=== PATIENT | female | born 1955 | race Caucasian/White ===

== ENCOUNTER → 2016-07-02 | Outpatient (CLI) | payer MEDICARE, OTHER ==
[~2016-07-02] MED LIST: ANUSOL-HC25 MG R; ASPIRIN81 M1 PO; ATORVASTATIN CA20 M1 PO; COREG25 MG PO; CYCLOBENZAPRINE10 MG PO; DICLOFENAC POTA50 MG PO; DIOVAN320 MG PO; FLEXERIL10 MG PO; FLUOXETINE HCL20 M1 PO; GABAPENTIN TAB600 MG PO; GABAPENTIN800 MG PO; HYDR25T PO; KLOR-CON M2020 ME1 PO; LEVAQUIN750 M1 PO; LEVAQUIN750 MG PO; LIPITOR40 MG PO; NORFLEX100 MG PO; NORVASC10 MG PO; OXYGEN NAS; PERCOCET 325 MG1 TA2 PO; PERCOCET 325 MG1 TA4 PO; PLAVIX75 M1 PO; PLAVIX75 MG PO; PREDNISONE10 MG PO; PREDNISONE50 MG PO; PROAIR HFA0.09 MG/AC INH; PROAIR HFA8.5 GM INH; PROVENTIL0.09 MG/A1 INH; PROZAC20 MG PO; PROZAC40 M1 PO; PROZAC40 MG PO; SYNTHROID0.15 MG PO; Synthroid,Lev150 MCG PO; Synthroid,Lev200 MCG PO; VICODIN HP 6601 TAB PO; ZOFRAN4 MG PO
== END | disposition home or self-care (01) ==
LOC: LAB 10:37 → RAD 11:00
DX: M81.0 Age-related osteoporosis without current pathological fracture (principal); E55.9 Vitamin D deficiency, unspecified; M54.9 Dorsalgia, unspecified

== ENCOUNTER 2016-09-06 09:57 | Inpatient (IN) | payer MEDICARE, OTHER ==
[~2016-09-06] VITALS: Ht 152.4 cm; Wt 55.0 kg
--- NOTE | ~2016-09-06 | WRIGHTHP ---
[place], [place] PATIENT HISTORY AND PHYSICAL EXAM NAME: SPARKLE GUZMAN [facility] #: [id number] UNIT #: [id number] ROOM: 528 DOCTOR: OZIEL DÍAZ MD BIRTHDATE: [birth year] DOS: 09/06/2016 HISTORY OF PRESENT ILLNESS: The patient is a 61-year-old female with a past medical history of benign essential hypertension, hypothyroidism, coronary artery disease of the twenty-nine palms vessels, mixed hyperlipidemia, chronic kidney disease stage 3, normocytic anemia, benign essential hypertension, COPD, major depression, recurrent. The patient developed mental confusion and dystonic movements of her upper extremities and head and face with some generalized weakness starting this morning at [facility]. The patient was transferred to the Emergency Department at [facility] where she was suspected to have dystonic reaction to Mirapex, which was stopped. A CT of the head was performed which showed large area of cytotoxic edema involving a good portion of the middle cerebral artery territory infarct accompanied by edema and minimal regional mass effect without any midline shift, no hemorrhage. A call was made to [facility] Stroke Center and case discussed with Dr. Harrison who accepted the patient at [facility] Emergency Department for further evaluation and placement of the patient. The patient is unable to provide any history. The patient's brother is present with her and [id number]. The patient's symptoms started at 6:30 a.m. at the detention. No recent complaints of any chest pains, shortness of breath. No other GI or urinary symptoms. The patient was admitted to [facility] recently after her third surgery to the lumbar spine where she has implants and decompression surgery with infection. The last surgery was for decompression and debridement and the patient was on vancomycin and rifampin. REVIEW OF SYSTEMS: LUNGS: No increasing shortness of breath or wheezing. GASTROINTESTINAL: No nausea, vomiting, diarrhea or constipation. CARDIOVASCULAR: No chest pains or palpitations. FAMILY HISTORY: Noncontributory. HOME MEDICATIONS: Vancomycin, amlodipine, aspirin, atorvastatin, Coreg, vitamin D, clonidine, Plavix, Colace, fluoxetine, gabapentin, levothyroxine, morphine, oxycodone, MiraLax, pramipexole, rifampin, and fentanyl. ALLERGIES: KNOWN ALLERGIES TO FLEXERIL. PHYSICAL EXAMINATION: HEENT: Pupils are equal, round and reactive to light. LUNGS: Clear to auscultation. No wheezing. No rhonchi. CARDIOVASCULAR: Heart rate is regular in rate and rhythm. S1 and S2 normally audible. No significant murmur or any other abnormal cardiac sounds. ABDOMEN: Soft, nontender. No obvious organomegaly. Bowel sounds are present. No obvious herniation. EXTREMITIES: Without significant cyanosis or edema. Warm to touch. CENTRAL NERVOUS SYSTEM: The patient awake, confused with rolling movements of her head and eyes and upper and lower extremities, but moving all extremities. [place], [place] PATIENT HISTORY AND PHYSICAL EXAM NAME: SPARKLE GUZMAN UNIT #: [id number] ROOM: 528 DOCTOR: OZIEL DÍAZ MD BIRTHDATE: [birth year] No seizures. LABORATORY DATA: CT scan results showing large infarct with edema in the left middle cerebral artery area, mostly involving the parietal lobe with minimal regional mass effect and sulcal effacement with no midline shift. Potassium level was low at 4. Normal serum electrolytes otherwise. Albumin low at 2.6. IMPRESSION: 1. The patient with acute ischemic infarct in the region of left middle cerebral artery with some edema and slight local mass effect with severe altered mental status being flown to [facility] Stroke Center. Case discussed with Dr. Harrison from the Stroke Center who preferred that the patient would initially go to [facility] Emergency Department for initial evaluation. The patient's symptoms apparently started at 6:30 a.m. at [facility] this morning. 2. Hypokalemia, being treated with IV infusion of potassium. 3. The patient with infected surgical site for lumbar spine decompression surgery and implants, status post debridement, recently and receiving IV vancomycin and rifampin. 4. Generalized weakness and adult failure to thrive, but the patient was completely alert and oriented yesterday and apparently up to 6:30 a.m. this morning. 5. Moderate protein-calorie malnutrition. 6. Benign essential hypertension. The patient on treatment with clonidine, Norvasc and Coreg. 7. Hypothyroidism. The patient on treatment with thyroid replacement. 8. Coronary artery disease of twenty-nine palms vessels without any angina symptoms. The patient was on Plavix. 9. Mixed hyperlipidemia treated with Lipitor. 10. Chronic kidney disease stage 3. 11. Chronic obstructive pulmonary disease with previous history of nicotine smoke dependence. 12. Major depression, recurrent, moderate, the patient was on treatment. The patient is being transferred to [facility] Emergency Department on instructions of Dr. Harrison from the Stroke Center at [facility]. [place], [place] PATIENT HISTORY AND PHYSICAL EXAM NAME: SPARKLE GUZMAN UNIT #: [id number] ROOM: 528 DOCTOR: OZIEL DÍAZ MD BIRTHDATE: [birth year] OZIEL DÍAZ MD CM:HISPHYS:PATIENT HISTORY AND PHYSICAL EXAMINATION [id number] OZIEL DÍAZ MD 09/06/162043 interface
[2016-09-06 10:03] VITALS: BP 147/73
[2016-09-06] MEDS ORDERED: GLYCOLAX17 GM/DOSE PO (10:14)
[2016-09-06] MEDS ORDERED: VANCOMYCIN HCL N1 GM IV (10:14)
[2016-09-06] MEDS ORDERED: VITAMIN D31000 I1 PO (10:15)
[2016-09-06] MEDS ORDERED: MIRAPEX0.5 MG PO (10:15)
[2016-09-06] MEDS ORDERED: COL-RITE100 M1 PO (10:16)
[2016-09-06] MEDS ORDERED: [UNRECOGNIZED DRUG - OTHER] PO (10:16)
[2016-09-06] MEDS ORDERED: FLUONAZOLE100 MG PO (10:16)
[2016-09-06] MEDS ORDERED: AMLODIPINE BESY10 MG PO (10:17)
[2016-09-06] MEDS ORDERED: DURAGESIC25 MCG/HR TD (10:17)
[2016-09-06] MEDS ORDERED: ASPIRIN CHILDRE81 MG PO (10:17)
[2016-09-06 10:18] LABS: BASO % 0.4 % (0.0-1.0); EOS # 0.1 10*3/uL (0.0-0.4); EOS % 0.8 % (1.0-4.0); HEMATOCRIT 31.1 % (37.0-47.0); HEMOGLOBIN 10.3 g/dl (12.0-16.0); IG # 0.1 10*3/uL (0.0-0.1); LYMPH # 0.8 10*3/uL (1.3-4.4); LYMPH % 8.6 % (27.0-41.0); MEAN CELL VOLUME 82.5 fl (81.0-99.0); MEAN CORPUSCULAR HGB 27.3 pg (27.0-31.0); MEAN CORPUSCULAR HGB CONC 33.1 g/dl (33.0-37.0); MEAN PLATELET VOLUME 8.8 fl (9.6-12.3); MONO # 0.7 10*3/uL (0.1-1.0); MONO % 7.5 % (3.0-9.0); NEUT # 7.8 10*3/uL (2.3-7.9); NEUT % 81.4 % (47.0-73.0); PLATELET COUNT AUTOMATED 264 10*3/uL (130-400); RED BLOOD COUNT 3.77 10*6/uL (4.10-5.10); RED CELL DISTRI WIDTH 14.1 % (0-14.5); WHITE BLOOD COUNT 9.5 10*3/uL (4.8-10.8)
[2016-09-06] MEDS ORDERED: ATORVASTATIN CA20 M1 PO (10:18)
[2016-09-06] MEDS ORDERED: PLAVIX75 M1 PO (10:18)
[2016-09-06] MEDS ORDERED: COREG12.5 M1 PO (10:19)
[2016-09-06] MEDS ORDERED: RIFADIN300 MG PO (10:19)
[2016-09-06] MEDS ORDERED: LEVOTHYROXINE0.15 MG PO (10:20)
[2016-09-06] MEDS ORDERED: MS CONTIN15 MG PO (10:20)
[2016-09-06] MEDS ORDERED: CLONIDINE0.2 MG PO (10:21)
[2016-09-06] MEDS ORDERED: GABAPENTIN800 MG PO (10:21)
[2016-09-06 10:33] LABS: ALBUMIN 2.6 gm/dl (3.1-4.5); ALKALINE PHOSPHATASE 107 U/L (45-117); BILIRUBIN, TOTAL 0.7 mg/dl (0.2-1.0); BUN 14 mg/dl (7-24); CARBON DIOXIDE 26 mmol/L (21-32); CHLORIDE 96 mmol/L (98-107); EST GLOM FILT AFRICAN AMERICAN > 60 ml/min; GLUCOSE 123 mg/dL (65-99); SGOT/AST 17 IU/L (3-35); SGPT/ALT 11 U/L (12-78); SODIUM 135 mmol/L (136-145)
[2016-09-06 13:20] VITALS: BP 149/80
[2016-09-06] MEDS ORDERED: FLUOXETINE HCL60 MG PO (13:44)
[2016-09-06] MEDS ORDERED: ASPIR 8181 MG PO (13:44)
[2016-09-06] MEDS ORDERED: OXYCODONE AND A1 TA3 PO (13:49)
[2016-09-06 16:07] VITALS: BP 115/81
== END 2016-09-06 16:20 | disposition short-term general hospital (02) | DRG 64 ==
LOC: ED 09:57 → EDHOLD 12:16 → 5E 13:12
PROVIDERS: Emergency Medicine
DX: I63.512 Cerebral infarction due to unspecified occlusion or stenosis of left middle cerebral artery (principal); G93.6 Cerebral edema; E44.0 Moderate protein-calorie malnutrition; F33.1 Major depressive disorder, recurrent, moderate; N18.3 Chronic kidney disease, stage 3 (moderate); F41.9 Anxiety disorder, unspecified; I12.9 Hypertensive chronic kidney disease with stage 1 through stage 4 chronic kidney disease, or unspecified chronic kidney disease; I25.10 Atherosclerotic heart disease of native coronary artery without angina pectoris; G89.29 Other chronic pain; J44.9 Chronic obstructive pulmonary disease, unspecified; E78.5 Hyperlipidemia, unspecified; E87.6 Hypokalemia; R62.7 Adult failure to thrive; E89.0 Postprocedural hypothyroidism; Z98.61 Coronary angioplasty status; Z87.440 Personal history of urinary (tract) infections; Z98.51 Tubal ligation status; Z87.891 Personal history of nicotine dependence; Z80.3 Family history of malignant neoplasm of breast; Z80.59 Family history of malignant neoplasm of other urinary tract organ; Z80.8 Family history of malignant neoplasm of other organs or systems; Z87.01 Personal history of pneumonia (recurrent); Z80.1 Family history of malignant neoplasm of trachea, bronchus and lung; Z83.3 Family history of diabetes mellitus; Z82.49 Family history of ischemic heart disease and other diseases of the circulatory system; Z68.23 Body mass index [BMI] 23.0-23.9, adult

== ENCOUNTER 2016-09-15 22:03 | Emergency (ER) | payer MEDICARE, OTHER ==
[~2016-09-15] VITALS: Ht 157.4 cm; Wt 54.9 kg
[~2016-09-15 22:03] MED LIST changes: +AMLODIPINE BESY10 MG PO; +ASPIR 8181 MG PO; +ASPIRIN CHILDRE81 MG PO; +CLONIDINE0.2 MG PO; +COL-RITE100 M1 PO; +COREG12.5 M1 PO; +DURAGESIC25 MCG/HR TD; +FLUONAZOLE100 MG PO; +FLUOXETINE HCL60 MG PO; +GLYCOLAX17 GM/DOSE PO; +LEVOTHYROXINE0.15 MG PO; +MIRAPEX0.5 MG PO; +MS CONTIN15 MG PO; +OXYCODONE AND A1 TA3 PO; +RIFADIN300 MG PO; +VANCOMYCIN HCL N1 GM IV; +VITAMIN D31000 I1 PO; +[UNRECOGNIZED DRUG - OTHER] PO
[2016-09-15 23:00] LABS: BASO % 0.6 % (0.0-1.0); EOS # 0.2 10*3/uL (0.0-0.4); EOS % 3.4 % (1.0-4.0); HEMATOCRIT 27.8 % (37.0-47.0); HEMOGLOBIN 9.7 g/dl (12.0-16.0); IG # 0.1 10*3/uL (0.0-0.1); LYMPH # 1.2 10*3/uL (1.3-4.4); LYMPH % 26.1 % (27.0-41.0); MEAN CELL VOLUME 79.7 fl (81.0-99.0); MEAN CORPUSCULAR HGB 27.8 pg (27.0-31.0); MEAN CORPUSCULAR HGB CONC 34.9 g/dl (33.0-37.0); MEAN PLATELET VOLUME 8.2 fl (9.6-12.3); MONO # 0.7 10*3/uL (0.1-1.0); MONO % 14.5 % (3.0-9.0); NEUT # 2.5 10*3/uL (2.3-7.9); NEUT % 54.3 % (47.0-73.0); PLATELET COUNT AUTOMATED 227 10*3/uL (130-400); RED BLOOD COUNT 3.49 10*6/uL (4.10-5.10); RED CELL DISTRI WIDTH 14.7 % (0-14.5); WHITE BLOOD COUNT 4.7 10*3/uL (4.8-10.8)
[2016-09-15 23:16] LABS: ALBUMIN 2.2 gm/dl (3.1-4.5); ALKALINE PHOSPHATASE 93 U/L (45-117); BILIRUBIN, DIRECT 0.3 mg/dL (0.0-0.2); BILIRUBIN, TOTAL 0.6 mg/dl (0.2-1.0); BUN 9 mg/dl (7-24); CARBON DIOXIDE 23 mmol/L (21-32); CHLORIDE 100 mmol/L (98-107); EST GLOM FILT AFRICAN AMERICAN > 60 ml/min; GLUCOSE 112 mg/dL (65-99); MAGNESIUM 1.5 mg/dL (1.5-2.1); POTASSIUM 2.7 mmol/L (3.5-5.1); SGOT/AST 16 IU/L (3-35); SGPT/ALT 10 U/L (12-78); SODIUM 134 mmol/L (136-145); TOTAL PROTEIN 5.2 gm/dL (6.4-8.2)
[2016-09-15 23:17] LABS: TROPONIN I 0.022 ng/ml (<0.045)
[2016-09-16] MEDS ORDERED: KLOR-CON M2020 ME1 PO (01:14)
[2016-09-17] MEDS ORDERED: GABAPENTIN600 MG PO (23:56)
== END 2016-09-16 03:16 | disposition home or self-care (01) ==
LOC: ED 22:03
PROVIDERS: Emergency Medicine
DX: K62.5 Hemorrhage of anus and rectum (principal); R10.84 Generalized abdominal pain; R11.0 Nausea; E87.6 Hypokalemia; I25.10 Atherosclerotic heart disease of native coronary artery without angina pectoris; I12.9 Hypertensive chronic kidney disease with stage 1 through stage 4 chronic kidney disease, or unspecified chronic kidney disease; N18.3 Chronic kidney disease, stage 3 (moderate); E03.9 Hypothyroidism, unspecified; J44.9 Chronic obstructive pulmonary disease, unspecified; Z88.8 Allergy status to other drugs, medicaments and biological substances; Z79.899 Other long term (current) drug therapy

== ENCOUNTER → 2016-09-16 | Outpatient (CLI) | payer MEDICARE, OTHER ==
[~2016-09-16] MED LIST changes: +ACETAMINOPHEN325 M2 PO; +AMLODIPINE BESY1 TAB PO; +ASPIRIN ADULT L81 M1 PO; +GABAPENTIN600 MG PO; +HYDROXYZINE 25 MG/ML IM; +LISINOPRIL10 M1 PO; +MIRALAX17 GM PO; +MULTI VITAMINS1 TAB PO; +NITROGLYCERIN0.4 MG SL; +OXYCODONE HCL5 MG PO; +PANTOPRAZOLE SO40 MG PO; +PHENAZOPYRIDIN100 M1 PO
--- NOTE | ~2016-09-16 | PROC NOTE ---
[place], [place] PROCEDURE NOTE NAME: SPARKLE GUZMAN [facility] #: [id number] UNIT #: [id number] ROOM: DOCTOR: SELVIN DUVAL BIRTHDATE: [birth year] DOS: 09/16/2016 DOCTOR: Dr. Corona. RADIOLOGIST: Dr. Dumont. BACKGROUND INFORMATION: The patient is a 61-year-old female who is seen for a modified barium swallow. This test was ordered to determine safety with p.o. intake. The patient provided her own case history and reported undergoing back surgery in early August of this year. She stated that she developed an infection in the surgical site as well as a UTI resulting in altered mental status. She underwent test to rule out CVA and this was ruled out. Further medical history includes hypertension, abdominal pain, major depressive disorder, anxiety, GERD and hypothyroid. Due to complications from her back surgery, she ended up n.p.o. Feeding tube has been pulled; however, at the retirement, a diet has not yet been ordered. The patient reported that she did undergo a modified barium swallow during hospitalization in [place]. She stated that she did pass this exam. However, no records of this exam were received by the retirement. She is currently n.p.o. as previously mentioned. For today's assessment, she was alert and able to follow all commands. Respiratory status was within normal limits. Oral peripheral examination revealed presence of natural teeth which were in good condition. Lingual, labial, and buccal skills were within normal limits in terms of strength, range of motion, and coordination. Volitional cough was weak. Volitional swallow was adequate. METHODS AND MATERIALS USED FOR THE EXAM: Due to severe back pain, the patient was unable to tolerate and upright position above 45 degrees, therefore the test was conducted in this position. This test was viewed under fluoroscopy. The patient was presented with a variety of consistencies to assess swallowing skills including applesauce mixed with barium presented in half-teaspoon amounts, barium-coated cookie and barium coated sandwich presented in bite size pieces. She was presented with thin liquids taken by straw. She swallowed liquids in sip size amount. ORAL PHASE: Unremarkable. PHARYNGEAL PHASE: Unremarkable. ESOPHAGEAL PHASE: This phase of the swallow was not formally assessed during this examination. IMPRESSIONS AND RECOMMENDATIONS: Based upon assessment results, this 61-year-old patient presents with swallowing skills that are within normal limits. Despite her inability to sit higher than 45-degree angle, she displayed no oral or pharyngeal difficulty. There was no penetration or aspiration with any consistency given. Recommend regular diet and thin liquids. Recommend the patient implement safety strategies such as sitting upright as high as able during the meals, consuming small bites and sips and eating slowly to ensure safety. The patient would benefit from short-term skilled monitoring during meals to ensure that there are no signs and symptoms of aspiration. Results and [place], [place] PROCEDURE NOTE NAME: SPARKLE GUZMAN UNIT #: [id number] ROOM: DOCTOR: SELVIN DUVAL BIRTHDATE: [birth year] recommendations were shared with the patient and a written copy was provided for education of retirement staff. Thank you very much for this referral. Should you have any questions regarding this patient, please contact the speech pathologist at [phone]. SELVIN DUVAL CM:PROCNOTE:PROCEDURE NOTE [id number] SELVIN DUVAL
--- NOTE | ~2016-09-16 | SLPPN ---
[place], [place] TERMITE HELPER PROGRESS NOTE NAME: SPARKLE GUZMAN UNIT #: [id number] ROOM: DOCTOR: DUNG MURPHY MD,KANWAL Speech Language Pathology Treatment Note Page 1 of 1 Patient Name: SPARKLE GUZMNA Date: 09/16/2016 10:18 AM : 1955 SOC Date: 09/16/2016 [facility]: [facility] Provider #: [id number] Treating Clinician: REYES Souza-TERMITE HELPER Referring Physician: KANWAL MURPHY Onset Date Code Description Primary Diagnosis: 09/16/2016 DYS.PHAGIA DYSPHAGIA Time In: 09:00 AM Time Out: 10:00 AM TERMITE HELPER Interventions and CPT Codes Consisted of: CPT Code Modifiers Minutes Units MOTION FLUOROSCOPY/SWALLOW 69106 60 1 Total Minutes: 60 Total Timed Minutes: 0 Total Untimed Minutes: 60 Total Units: 1 Total Timed Units: 0 Total Untimed Units: 1 09/16/2016 10:19:26 AM KOSTA Souza Date/Time State License #: [id number] CM:YANIV 1022 1022 [facility] [place]
--- NOTE | ~2016-09-16 | SLPIE ---
[place], [place] CATEGORY DEVELOPMENT ANALYST INITIAL EVALUATION NAME: SPARKLE GUZMAN UNIT #: [id number] ROOM: DOCTOR: KANWAL TREVINO FACP, MD Speech Language Pathology Initial Evaluation Page 1 1 of Patient Name: SPARKLE GUZMAN Date: 09/16/2016 10:16 AM : 1955 SOC Date: 09/16/2016 Provider: [facility] Provider #: [id number] Treating Clinician: REYES Souza-CATEGORY DEVELOPMENT ANALYST Referring Physician: KANWAL MURPHY Patient Information Address: [address] [place] [address] Physician: KANWAL MURPHY Physician #: City, [facility], Zip: [place], [place] [address] Occupation: Unknown # of Approved Visits: 0 Gender: Female Soda Worker: FIDEL GUZMAN Medicare #: [id number] Rehabilitation Information / History Onset Date Code Description Primary Diagnosis: 09/16/2016 DYS.PHAGIA DYSPHAGIA Subjective Comments: Initial evaluation created to initiate the electronic medical record. Please see In[facility] for details. Clinical Findings Functional Goals Functional Limitation Reporting Swallowing G8996 - Swallowing functional limitation, current status at therapy episode outset and at reporting intervals Current Status: CH - 0 percent impaired, limited or restricted G8997 - Swallowing functional limitation, projected goal status, at therapy episode outset, at reporting intervals, and at discharge or to end reporting Goal Status: CH - 0 percent impaired, limited or restricted G8998 - Swallowing functional limitation, discharge status, at discharge from therapy or to end reporting Discharge Status: CH - 0 percent impaired, limited or restricted 09/16/2016 10:18:18 AM REYES Souza-CATEGORY DEVELOPMENT ANALYST Date/Time State License #: [id number] CM:ORLIN 1022 1022 [facility] [place]
--- NOTE | ~2016-09-16 | SLPPOC ---
[place], [place] SERGEANT MISSILE CREWMAN PLAN OF CARE NAME: SPARKLE GUZMAN UNIT #: [id number] ROOM: DOCTOR: KANWAL TREVINO FACP, MD Speech Language Pathology Plan of Care Page 1 1 (Initial Evaluation) of Patient Name: SPARKLE GUZMAN Date: 09/16/2016 10:16 AM : 1955 SOC Date: 09/16/2016 Provider: [facility] Provider #: [id number] Treating Clinician: REYES Souza-SERGEANT MISSILE CREWMAN Referring Physician: KANWAL MURPHY Medicare #: [id number] Visits From SOC: 1 Onset Date Description Code Primary Diagnosis: 09/16/2016 DYS.PHAGIA DYSPHAGIA Subjective Comments: Initial evaluation created to initiate the electronic medical record. Please see [facility] for details. Initial Level Goals Functional Limitation Reporting Swallowing G8996 - Swallowing functional limitation, current status at therapy episode outset and at reporting intervals Current Status: CH - 0 percent impaired, limited or restricted G8997 - Swallowing functional limitation, projected goal status, at therapy episode outset, at reporting intervals, and at discharge or to end reporting Goal Status: CH - 0 percent impaired, limited or restricted G8998 - Swallowing functional limitation, discharge status, at discharge from therapy or to end reporting Discharge Status: CH - 0 percent impaired, limited or restricted 09/16/2016 10:18:18 AM KANWAL MURPHY Date/Time REYES Souza-KRISTEN Date I certify the need for these services furnished under this plan of treatment while under my care. State License #: [id number] CM:SLPPOC 1022 1022 [facility] [place]
== END | disposition home or self-care (01) ==
LOC: RAD/SH 09:00
DX: Z51.89 Encounter for other specified aftercare (principal); R13.10 Dysphagia, unspecified

== ENCOUNTER 2016-09-18 21:51 | Inpatient (IN) | payer MEDICARE, OTHER ==
[~2016-09-18] VITALS: Ht 157.4 cm; Wt 55.4 kg
[~2016-09-18 21:51] MED LIST changes: -ACETAMINOPHEN325 M2 PO; -AMLODIPINE BESY1 TAB PO; -ASPIRIN ADULT L81 M1 PO; -HYDROXYZINE 25 MG/ML IM; -LISINOPRIL10 M1 PO; -MIRALAX17 GM PO; -MULTI VITAMINS1 TAB PO; -NITROGLYCERIN0.4 MG SL; -OXYCODONE HCL5 MG PO; -PANTOPRAZOLE SO40 MG PO; -PHENAZOPYRIDIN100 M1 PO
[2016-09-18 21:58] VITALS: BP 94/60
[2016-09-18 22:14] LABS: BASO % 0.5 % (0.0-1.0); EOS # 0.2 10*3/uL (0.0-0.4); EOS % 2.7 % (1.0-4.0); HEMATOCRIT 31.5 % (37.0-47.0); HEMOGLOBIN 10.5 g/dl (12.0-16.0); IG # 0.1 10*3/uL (0.0-0.1); LYMPH # 1.9 10*3/uL (1.3-4.4); LYMPH % 23.6 % (27.0-41.0); MEAN CELL VOLUME 81.8 fl (81.0-99.0); MEAN CORPUSCULAR HGB 27.3 pg (27.0-31.0); MEAN CORPUSCULAR HGB CONC 33.3 g/dl (33.0-37.0); MEAN PLATELET VOLUME 8.3 fl (9.6-12.3); MONO # 0.8 10*3/uL (0.1-1.0); NEUT # 4.9 10*3/uL (2.3-7.9); NEUT % 61.7 % (47.0-73.0); PLATELET COUNT AUTOMATED 277 10*3/uL (130-400); RED BLOOD COUNT 3.85 10*6/uL (4.10-5.10); RED CELL DISTRI WIDTH 15.1 % (0-14.5); WHITE BLOOD COUNT 7.9 10*3/uL (4.8-10.8)
[2016-09-18 22:30] LABS: ALBUMIN 2.4 gm/dl (3.1-4.5); BILIRUBIN, TOTAL 0.6 mg/dl (0.2-1.0); POTASSIUM 2.7 mmol/L (3.5-5.1); TOTAL PROTEIN 5.3 gm/dL (6.4-8.2)
[2016-09-18 22:57] LABS: BILIRUBIN 2+ (NEGATIVE); BLOOD NEGATIVE (NEGATIVE); CLARITY SL CLOUDY (CLEAR); COLOR ORANGE (YELLOW); GLUCOSE TRACE (NEGATIVE); KETONE 1+ (NEGATIVE); LEUKO ESTERASE NEGATIVE (NEGATIVE); NITRITE POSITIVE (NEGATIVE); PROTEIN 3+ (NEGATIVE)
[2016-09-18 23:03] LABS: HYALINE CAST 16-20
[2016-09-18 23:04] LABS: BACTERIA 2+; URINE REFLEX COMMENT YES (NO)
[2016-09-18 23:05] LABS: RBC 0-2 rbc/hpf (0-2)
[2016-09-18 23:13] LABS: INTERNATIONAL NORM RATIO 1.1 (2.0-3.5)
[2016-09-18 23:23] VITALS: BP 116/75
[2016-09-18] MEDS ORDERED: PLAVIX75 M1 PO (23:52)
[2016-09-18] MEDS ORDERED: COREG25 MG PO (23:52)
[2016-09-18] MEDS ORDERED: ASPIRIN ADULT L81 M1 PO (23:52)
[2016-09-18] MEDS ORDERED: SYNTHROID0.15 MG PO (23:53)
[2016-09-18] MEDS ORDERED: MULTI VITAMINS1 TAB PO (23:54)
[2016-09-18] MEDS ORDERED: ACETAMINOPHEN325 M2 PO (23:57)
[2016-09-19] MEDS ORDERED: LISINOPRIL10 M1 PO
[2016-09-19] MEDS ORDERED: HYDROXYZINE 25 MG/ML IM
[2016-09-19] MEDS ORDERED: MIRALAX17 GM PO (00:01)
[2016-09-19] MEDS ORDERED: AMLODIPINE BESY1 TAB PO (00:03)
[2016-09-19] MEDS ORDERED: NITROGLYCERIN0.4 MG SL (00:03)
[2016-09-19] MEDS ORDERED: PANTOPRAZOLE SO40 MG PO (00:05)
[2016-09-19] MEDS ORDERED: OXYCODONE HCL5 MG PO (00:05)
[2016-09-19] MEDS ORDERED: PHENAZOPYRIDIN100 M1 PO (00:07)
[2016-09-19] MEDS ORDERED: PROZAC20 MG PO (00:08)
[2016-09-19 00:12] LABS: LA>2 REFLEX 2 HR DRAW NOW
[2016-09-19 00:30] VITALS: BP 86/48
[2016-09-19 00:36] LABS: CKMB 1.1 ng/ml (0.5-3.6); TROPONIN I 0.031 ng/ml (<0.045)
[2016-09-19 01:00] VITALS: BP 100/52; BP 100/58
[2016-09-19 02:25] VITALS: BP 122/76
[2016-09-19 06:29] LABS: BASO # 0.1 10*3/uL (0.0-0.1); BASO % 0.8 % (0.0-1.0); EOS # 0.2 10*3/uL (0.0-0.4); EOS % 2.7 % (1.0-4.0); HEMATOCRIT 28.4 % (37.0-47.0); HEMOGLOBIN 9.3 g/dl (12.0-16.0); IG # 0.1 10*3/uL (0.0-0.1); LYMPH # 1.5 10*3/uL (1.3-4.4); LYMPH % 23.2 % (27.0-41.0); MEAN CORPUSCULAR HGB 27.2 pg (27.0-31.0); MEAN CORPUSCULAR HGB CONC 32.7 g/dl (33.0-37.0); MEAN PLATELET VOLUME 8.7 fl (9.6-12.3); MONO # 0.7 10*3/uL (0.1-1.0); MONO % 11.2 % (3.0-9.0); NEUT # 3.8 10*3/uL (2.3-7.9); NEUT % 60.2 % (47.0-73.0); PLATELET COUNT AUTOMATED 239 10*3/uL (130-400); RED BLOOD COUNT 3.42 10*6/uL (4.10-5.10); RED CELL DISTRI WIDTH 15.3 % (0-14.5); WHITE BLOOD COUNT 6.3 10*3/uL (4.8-10.8)
[2016-09-19 06:40] LABS: CKMB 2.6 ng/ml (0.5-3.6); TROPONIN I 0.026 ng/ml (<0.045)
[2016-09-19 06:54] LABS: INTERNATIONAL NORM RATIO 1.1 (2.0-3.5)
[2016-09-19 06:57] LABS: ALBUMIN 2.3 gm/dl (3.1-4.5); BILIRUBIN, TOTAL 0.3 mg/dl (0.2-1.0); FREE T4 0.79 ng/dl (0.76-1.46); MAGNESIUM 1.3 mg/dL (1.5-2.1); PHOSPHOROUS 2.6 mg/dL (2.5-4.9); POTASSIUM 3.6 mmol/L (3.5-5.1); TOTAL PROTEIN 5.1 gm/dL (6.4-8.2)
[2016-09-19 07:03] LABS: THYROID STIM HORMONE (HS) 47.4 uIU/ml (0.358-4.75)
[2016-09-19 07:18] LABS: FOLIC ACID 5.34 ng/mL (>5.38); VITAMIN D, 25-HYDROXY 7.7 ng/mL (30-100)
[2016-09-19 08:00] VITALS: BP 113/69
[2016-09-19 12:00] VITALS: BP 131/73
[2016-09-19 12:34] LABS: TROPONIN I 0.026 ng/ml (<0.045)
[2016-09-19 12:36] LABS: CKMB 4.3 ng/ml (0.5-3.6)
== END 2016-09-19 13:22 | disposition short-term general hospital (02) | DRG 539 ==
LOC: ED 21:51 → 4E 23:18 → EDHOLD 23:18 → 4E 23:27
PROVIDERS: Emergency Medicine; Hospitalist
DX: M46.26 Osteomyelitis of vertebra, lumbar region (principal); N17.0 Acute kidney failure with tubular necrosis; E43 Unspecified severe protein-calorie malnutrition; F33.9 Major depressive disorder, recurrent, unspecified; N39.0 Urinary tract infection, site not specified; K80.20 Calculus of gallbladder without cholecystitis without obstruction; N20.0 Calculus of kidney; Z87.01 Personal history of pneumonia (recurrent); I25.10 Atherosclerotic heart disease of native coronary artery without angina pectoris; G89.29 Other chronic pain; F41.9 Anxiety disorder, unspecified; E03.9 Hypothyroidism, unspecified; E87.6 Hypokalemia; E86.0 Dehydration; E78.5 Hyperlipidemia, unspecified; M54.5 Low back pain; D64.9 Anemia, unspecified; J43.9 Emphysema, unspecified; I70.0 Atherosclerosis of aorta; E53.8 Deficiency of other specified B group vitamins; E55.9 Vitamin D deficiency, unspecified; I10 Essential (primary) hypertension; Z98.51 Tubal ligation status; Z95.818 Presence of other cardiac implants and grafts; Z90.49 Acquired absence of other specified parts of digestive tract; Z72.89 Other problems related to lifestyle; Z72.0 Tobacco use; Z82.49 Family history of ischemic heart disease and other diseases of the circulatory system; Z80.3 Family history of malignant neoplasm of breast; Z80.8 Family history of malignant neoplasm of other organs or systems; Z80.1 Family history of malignant neoplasm of trachea, bronchus and lung; Z83.3 Family history of diabetes mellitus; Z88.8 Allergy status to other drugs, medicaments and biological substances; Z79.82 Long term (current) use of aspirin; Z79.899 Other long term (current) drug therapy; Z68.22 Body mass index [BMI] 22.0-22.9, adult

== ENCOUNTER 2016-10-04 18:18 | Emergency (ER) | payer MEDICARE, OTHER ==
[~2016-10-04] VITALS: Wt 51.7 kg
[~2016-10-04 18:18] MED LIST changes: +ACETAMINOPHEN325 M2 PO; +AMLODIPINE BESY1 TAB PO; +ASPIRIN ADULT L81 M1 PO; +HYDROXYZINE 25 MG/ML IM; +LISINOPRIL10 M1 PO; +MIRALAX17 GM PO; +MULTI VITAMINS1 TAB PO; +NITROGLYCERIN0.4 MG SL; +OXYCODONE HCL5 MG PO; +PANTOPRAZOLE SO40 MG PO; +PHENAZOPYRIDIN100 M1 PO
[2016-10-04] MEDS ORDERED: CLONIDINE HCL0.1 MG PO (18:56)
== END 2016-10-04 19:21 | disposition home or self-care (01) ==
LOC: ED 18:18
DX: R51 Headache (principal); I10 Essential (primary) hypertension; I25.10 Atherosclerotic heart disease of native coronary artery without angina pectoris; J44.9 Chronic obstructive pulmonary disease, unspecified; E78.5 Hyperlipidemia, unspecified; E03.9 Hypothyroidism, unspecified; Z87.891 Personal history of nicotine dependence; Z79.82 Long term (current) use of aspirin; Z79.899 Other long term (current) drug therapy; Z88.8 Allergy status to other drugs, medicaments and biological substances

== ENCOUNTER → 2016-11-04 | Outpatient (CLI) | payer MEDICARE, OTHER ==
[~2016-11-04] MED LIST changes: +CLONIDINE HCL0.1 MG PO
[2016-11-04 13:09] LABS: BASO % 0.9 % (0.0-1.0); EOS # 0.2 10*3/uL (0.0-0.4); EOS % 6.2 % (1.0-4.0); HEMATOCRIT 29.5 % (37.0-47.0); HEMOGLOBIN 9.6 g/dl (12.0-16.0); LYMPH # 1.4 10*3/uL (1.3-4.4); LYMPH % 41.1 % (27.0-41.0); MEAN CORPUSCULAR HGB 27.4 pg (27.0-31.0); MEAN CORPUSCULAR HGB CONC 32.5 g/dl (33.0-37.0); MEAN PLATELET VOLUME 8.9 fl (9.6-12.3); MONO # 0.3 10*3/uL (0.1-1.0); NEUT # 1.5 10*3/uL (2.3-7.9); NEUT % 43.5 % (47.0-73.0); PLATELET COUNT AUTOMATED 209 10*3/uL (130-400); RED BLOOD COUNT 3.51 10*6/uL (4.10-5.10); RED CELL DISTRI WIDTH 14.5 % (0-14.5); WHITE BLOOD COUNT 3.4 10*3/uL (4.8-10.8)
[2016-11-04 13:38] LABS: ALKALINE PHOSPHATASE 88 U/L (45-117); BILIRUBIN, TOTAL 0.3 mg/dl (0.2-1.0); BUN 15 mg/dl (7-24); CARBON DIOXIDE 24 mmol/L (21-32); CHLORIDE 110 mmol/L (98-107); CHOLESTEROL 117 mg/dL (<200); CPK 25 U/L (26-192); EST GLOM FILT AFRICAN AMERICAN > 60 ml/min; FREE T4 1.98 ng/dl (0.76-1.46); GLUCOSE 104 mg/dL (65-99); HDL CHOLESTEROL 36 mg/dl (40-60); LDL CHOLESTEROL 32 mg/dL (9-159); POTASSIUM 3.8 mmol/L (3.5-5.1); SGOT/AST 19 IU/L (3-35); SGPT/ALT 24 U/L (12-78); SODIUM 142 mmol/L (136-145); TOTAL PROTEIN 5.6 gm/dL (6.4-8.2); TRIGLYCERIDES 243 mg/dl (<150); VLDL CHOLESTEROL 49 mg/dL (6-40)
[2016-11-04 13:46] LABS: C-REACTIVE PROTEIN < 0.29 MG/DL (0-0.3); THYROID STIM HORMONE (HS) 0.066 uIU/ml (0.358-4.75)
[2016-11-04 15:57] LABS: VITAMIN D, 25-HYDROXY 59.6 ng/mL (30-100)
== END | disposition home or self-care (01) ==
LOC: LAB 12:22
PROVIDERS: Internal Medicine Infectious Disease
DX: E11.9 Type 2 diabetes mellitus without complications (principal); E78.00 Pure hypercholesterolemia, unspecified; E55.9 Vitamin D deficiency, unspecified; M46.20 Osteomyelitis of vertebra, site unspecified; R53.83 Other fatigue; E03.9 Hypothyroidism, unspecified

== ENCOUNTER → 2016-12-05 | Outpatient (CLI) | payer MEDICARE, OTHER ==
[2016-12-05 14:15] LABS: HEMATOCRIT 31.8 % (37.0-47.0); HEMOGLOBIN 10.4 g/dl (12.0-16.0); MEAN CORPUSCULAR HGB 27.8 pg (27.0-31.0); MEAN CORPUSCULAR HGB CONC 32.7 g/dl (33.0-37.0); MEAN PLATELET VOLUME 9.5 fl (9.6-12.3); PLATELET COUNT AUTOMATED 207 10*3/uL (130-400); RED BLOOD COUNT 3.74 10*6/uL (4.10-5.10); RED CELL DISTRI WIDTH 13.1 % (0-14.5); WHITE BLOOD COUNT 6.5 10*3/uL (4.8-10.8)
[2016-12-05 14:42] LABS: ALBUMIN 3.1 gm/dl (3.1-4.5); ALKALINE PHOSPHATASE 114 U/L (45-117); BUN 21 mg/dl (7-24); CHLORIDE 107 mmol/L (98-107); CREATININE 1.24 mg/dL (0.55-1.02); POTASSIUM 3.5 mmol/L (3.5-5.1); SGOT/AST 17 IU/L (3-35); SGPT/ALT 17 U/L (12-78); SODIUM 141 mmol/L (136-145); TOTAL PROTEIN 5.8 gm/dL (6.4-8.2)
[2016-12-05 14:44] LABS: BASOPHILS 1 % (0-1); PLATELET SUFFICIENCY NORMAL (NORMAL); POLYCHROMASIA SLIGHT; TOTAL CELLS COUNTED 100 #CELLS
== END | disposition home or self-care (01) ==
LOC: LAB 13:54
PROVIDERS: Internal Medicine Infectious Disease
DX: M46.20 Osteomyelitis of vertebra, site unspecified (principal)

== ENCOUNTER → 2017-03-11 | Outpatient (CLI) | payer MEDICARE, OTHER ==
[2017-03-11 12:52] LABS: HEMATOCRIT 38.7 % (37.0-47.0); HEMOGLOBIN 12.2 g/dl (12.0-16.0); MEAN CELL VOLUME 78.8 fl (81.0-99.0); MEAN CORPUSCULAR HGB 24.8 pg (27.0-31.0); MEAN CORPUSCULAR HGB CONC 31.5 g/dl (33.0-37.0); RED BLOOD COUNT 4.91 10*6/uL (4.10-5.10); RED CELL DISTRI WIDTH 15.4 % (0-14.5); WHITE BLOOD COUNT 5.4 10*3/uL (4.8-10.8)
[2017-03-11 13:20] LABS: ALBUMIN 3.9 gm/dl (3.1-4.5); CREATININE 1.47 mg/dL (0.55-1.02); FREE T4 0.99 ng/dl (0.76-1.46); POTASSIUM 4.6 mmol/L (3.5-5.1); TOTAL PROTEIN 6.9 gm/dL (6.4-8.2)
[2017-03-11 13:24] LABS: THYROID STIM HORMONE (HS) 26.4 uIU/ml (0.358-4.75)
== END | disposition home or self-care (01) ==
LOC: LAB 12:11
PROVIDERS: Family Medicine
DX: I12.9 Hypertensive chronic kidney disease with stage 1 through stage 4 chronic kidney disease, or unspecified chronic kidney disease (principal); N18.3 Chronic kidney disease, stage 3 (moderate); D63.1 Anemia in chronic kidney disease; E78.00 Pure hypercholesterolemia, unspecified; E55.9 Vitamin D deficiency, unspecified; G62.9 Polyneuropathy, unspecified; M54.9 Dorsalgia, unspecified

== ENCOUNTER → 2017-06-04 | Outpatient (CLI) | payer MEDICARE, OTHER ==
[2017-06-04 13:33] LABS: HEMATOCRIT 37.5 % (37.0-47.0); MEAN CELL VOLUME 78.9 fl (81.0-99.0); MEAN CORPUSCULAR HGB 25.3 pg (27.0-31.0); RED BLOOD COUNT 4.75 10*6/uL (4.10-5.10); RED CELL DISTRI WIDTH 15.2 % (0-14.5); WHITE BLOOD COUNT 5.2 10*3/uL (4.8-10.8)
[2017-06-04 14:01] LABS: CREATININE 1.49 mg/dL (0.55-1.02); FREE T4 1.46 ng/dl (0.76-1.46); POTASSIUM 5.1 mmol/L (3.5-5.1)
[2017-06-04 14:08] LABS: THYROID STIM HORMONE (HS) 0.318 uIU/ml (0.358-4.75)
== END | disposition home or self-care (01) ==
LOC: LAB 13:10
PROVIDERS: Family Medicine
DX: F41.1 Generalized anxiety disorder (principal); E74.09 Other glycogen storage disease; I10 Essential (primary) hypertension; E03.9 Hypothyroidism, unspecified; E55.9 Vitamin D deficiency, unspecified

== ENCOUNTER → 2017-12-10 | Outpatient (CLI) | payer MEDICARE, OTHER ==
[2017-12-10 10:31] LABS: HEMATOCRIT 38.3 % (37.0-47.0); HEMOGLOBIN 12.3 g/dl (12.0-16.0); MEAN CELL VOLUME 82.5 fl (81.0-99.0); MEAN CORPUSCULAR HGB 26.5 pg (27.0-31.0); MEAN CORPUSCULAR HGB CONC 32.1 g/dl (33.0-37.0); MEAN PLATELET VOLUME 9.7 fl (9.6-12.3); RED BLOOD COUNT 4.64 10*6/uL (4.10-5.10); RED CELL DISTRI WIDTH 15.3 % (0-14.5); WHITE BLOOD COUNT 4.4 10*3/uL (4.8-10.8)
[2017-12-10 10:36] LABS: ALBUMIN 3.7 gm/dl (3.1-4.5); CREATININE 1.39 mg/dL (0.55-1.02); POTASSIUM 4.7 mmol/L (3.5-5.1)
[2017-12-10 10:43] LABS: FREE T4 1.69 ng/dl (0.76-1.46); THYROID STIM HORMONE (HS) 0.239 uIU/ml (0.358-4.75); TOTAL PROTEIN 6.5 gm/dL (6.4-8.2)
== END | disposition home or self-care (01) ==
LOC: LAB 09:37
PROVIDERS: Family Medicine
DX: I25.10 Atherosclerotic heart disease of native coronary artery without angina pectoris (principal); I10 Essential (primary) hypertension; E03.9 Hypothyroidism, unspecified; R53.83 Other fatigue; E78.00 Pure hypercholesterolemia, unspecified; E11.9 Type 2 diabetes mellitus without complications

== ENCOUNTER → 2018-02-11 | Outpatient (CLI) | payer MEDICARE, OTHER ==
[2018-02-11 12:51] LABS: ALBUMIN 3.8 gm/dl (3.1-4.5); PHOSPHOROUS 3.4 mg/dL (2.5-4.9)
[2018-02-11 12:59] LABS: THYROID STIM HORMONE (HS) 0.092 uIU/ml (0.358-4.75)
[2018-02-11 13:12] LABS: VITAMIN D, 25-HYDROXY 52.6 ng/mL (30-100)
== END | disposition home or self-care (01) ==
LOC: LAB 11:33
PROVIDERS: Internal Medicine Cardiovascular Disease
DX: M80.00XG Age-related osteoporosis with current pathological fracture, unspecified site, subsequent encounter for fracture with delayed healing (principal); I25.10 Atherosclerotic heart disease of native coronary artery without angina pectoris; E78.2 Mixed hyperlipidemia

== ENCOUNTER → 2018-03-19 | Outpatient (CLI) | payer MEDICARE, OTHER ==
[2018-03-19 15:51] LABS: URINE AMPHETAMINES < 1000 (1000ng/ml); URINE BARBITURATES < 200 (200ng/ml); URINE BENZODIAZEPINES < 200 (200ng/ml); URINE CANNABINOIDS (THC) < 50 (50ng/ml); URINE COCAINE < 300 (300ng/ml); URINE METHADONE < 300 (300ng/ml); URINE OPIATES < 300 (300ng/ml)
[2018-03-19 15:53] LABS: URINE PHENCYCLIDINE < 25 (25ng/ml)
== END | disposition home or self-care (01) ==
LOC: LAB 15:15
PROVIDERS: Family Medicine
DX: Z79.899 Other long term (current) drug therapy (principal)

== ENCOUNTER → 2018-05-20 | Outpatient (CLI) | payer MEDICARE, OTHER ==
[2018-05-20 14:16] LABS: CREATININE 1.27 mg/dL (0.55-1.02); POTASSIUM 4.7 mmol/L (3.5-5.1)
[2018-05-20 14:18] LABS: FREE T4 1.67 ng/dl (0.76-1.46)
[2018-05-20 14:32] LABS: THYROID STIM HORMONE (HS) 5.07 uIU/ml (0.358-4.75)
== END | disposition home or self-care (01) ==
LOC: LAB 13:19
PROVIDERS: Family Medicine
DX: E78.00 Pure hypercholesterolemia, unspecified (principal); E55.9 Vitamin D deficiency, unspecified; I10 Essential (primary) hypertension; E03.9 Hypothyroidism, unspecified

== ENCOUNTER → 2018-08-21 | Outpatient (CLI) | payer MEDICARE, OTHER ==
[2018-08-21 14:45] LABS: FREE T4 1.85 ng/dl (0.76-1.46)
[2018-08-21 14:48] LABS: ALBUMIN 3.6 gm/dl (3.1-4.5); CREATININE 1.28 mg/dL (0.55-1.02); POTASSIUM 4.4 mmol/L (3.5-5.1); TOTAL PROTEIN 6.2 gm/dL (6.4-8.2)
[2018-08-21 14:54] LABS: PTH INTACT 350.1 pg/mL (18.5-88.0); VITAMIN D, 25-HYDROXY 61.3 ng/mL (30-100)
[2018-08-21 14:56] LABS: THYROID STIM HORMONE (HS) 0.096 uIU/ml (0.358-4.75)
== END | disposition home or self-care (01) ==
LOC: LAB 13:37
PROVIDERS: Family Medicine; Internal Medicine Endocrinology, Diabetes & Metabolism
DX: M80.00XG Age-related osteoporosis with current pathological fracture, unspecified site, subsequent encounter for fracture with delayed healing (principal); E78.00 Pure hypercholesterolemia, unspecified; E55.9 Vitamin D deficiency, unspecified; M54.9 Dorsalgia, unspecified; R73.09 Other abnormal glucose

== ENCOUNTER → 2018-09-02 | Outpatient (CLI) | payer MEDICARE, OTHER | END | disposition home or self-care (01) | LOC: RAD 13:00 | DX: M81.0 Age-related osteoporosis without current pathological fracture (principal); N95.9 Unspecified menopausal and perimenopausal disorder ==

== ENCOUNTER → 2018-11-22 | Outpatient (CLI) | payer MEDICARE, OTHER ==
[2018-11-23 15:06] LABS: t-TRANSGLUTAMINASE (tTG) IGA <2 U/mL (0-3); t-TRANSGLUTAMINASE (tTG) IgG <2 U/mL (0-5)
[2018-11-23 18:06] LABS: ENDOMYSIAL ANTIBODY IgA Negative (Negative)
== END | disposition home or self-care (01) ==
LOC: LAB 12:03
PROVIDERS: Internal Medicine Endocrinology, Diabetes & Metabolism
DX: E03.8 Other specified hypothyroidism (principal); E06.3 Autoimmune thyroiditis; M81.0 Age-related osteoporosis without current pathological fracture; E21.3 Hyperparathyroidism, unspecified

== ENCOUNTER → 2019-02-28 | Outpatient (CLI) | payer MEDICARE, OTHER ==
[2019-02-28 11:42] LABS: HEMATOCRIT 40.9 % (37.0-47.0); HEMOGLOBIN 13.3 g/dl (12.0-16.0); MEAN CELL VOLUME 83.3 fl (81.0-99.0); MEAN CORPUSCULAR HGB 27.1 pg (27.0-31.0); MEAN CORPUSCULAR HGB CONC 32.5 g/dl (33.0-37.0); MEAN PLATELET VOLUME 9.5 fl (9.6-12.3); RED BLOOD COUNT 4.91 10*6/uL (4.10-5.10); RED CELL DISTRI WIDTH 13.9 % (0-14.5)
[2019-02-28 12:14] LABS: ALBUMIN 3.7 gm/dl (3.1-4.5); CREATININE 1.39 mg/dL (0.55-1.02); FREE T4 1.64 ng/dl (0.76-1.46); POTASSIUM 3.4 mmol/L (3.5-5.1); TOTAL PROTEIN 7.1 gm/dL (6.4-8.2)
[2019-02-28 12:18] LABS: THYROID STIM HORMONE (HS) 1.53 uIU/ml (0.358-4.75)
== END | disposition home or self-care (01) ==
LOC: LAB 11:13
PROVIDERS: Family Medicine
DX: I25.10 Atherosclerotic heart disease of native coronary artery without angina pectoris (principal); I10 Essential (primary) hypertension; K21.9 Gastro-esophageal reflux disease without esophagitis; K44.9 Diaphragmatic hernia without obstruction or gangrene; E03.9 Hypothyroidism, unspecified

== ENCOUNTER 2019-07-31 13:42 | Inpatient (IN) | payer MEDICARE, OTHER ==
[~2019-07-31] VITALS: Ht 160 cm; Wt 64.0 kg
[2019-07-31 13:48] VITALS: BP 148/92
[2019-07-31 14:19] LABS: BASO # 0.1 10*3/uL (0.0-0.1); BASO % 0.3 % (0.0-1.0); EOS # 0.1 10*3/uL (0.0-0.4); EOS % 0.3 % (1.0-4.0); HEMATOCRIT 43.3 % (37.0-47.0); LYMPH # 1.2 10*3/uL (1.3-4.4); LYMPH % 6.5 % (27.0-41.0); MEAN CELL VOLUME 82.6 fl (81.0-99.0); MEAN CORPUSCULAR HGB 27.5 pg (27.0-31.0); MEAN CORPUSCULAR HGB CONC 33.3 g/dl (33.0-37.0); MEAN PLATELET VOLUME 8.8 fl (9.6-12.3); MONO # 1.1 10*3/uL (0.1-1.0); MONO % 6.3 % (3.0-9.0); NEUT # 15.2 10*3/uL (2.3-7.9); NEUT % 85.8 % (47.0-73.0); PLATELET COUNT AUTOMATED 251 10*3/uL (130-400); RED BLOOD COUNT 5.24 10*6/uL (4.10-5.10); RED CELL DISTRI WIDTH 12.8 % (0-14.5); WHITE BLOOD COUNT 17.7 10*3/uL (4.8-10.8)
[2019-07-31 14:31] LABS: ACT PARTIAL THROMBO TIME 25.6 SECONDS (20.0-32.1)
[2019-07-31 14:36] LABS: ALBUMIN 3.4 gm/dl (3.1-4.5); ALKALINE PHOSPHATASE 103 U/L (45-117); BUN 17 mg/dl (7-24); CHLORIDE 103 mmol/L (98-107); CREATININE 1.36 mg/dL (0.55-1.02); SGOT/AST 61 IU/L (3-35); SGPT/ALT 36 U/L (12-78); SODIUM 134 mmol/L (136-145); TOTAL PROTEIN 6.7 gm/dL (6.4-8.2)
[2019-07-31 14:40] LABS: TROPONIN I < 0.015 ng/ml (<0.045)
[2019-07-31 17:03] VITALS: BP 124/74
[2019-07-31 17:45] VITALS: BP 130/67
--- NOTE | 2019-07-31 17:45 | NUR ---
A 64, admitted to , under the services of Dr. ARJUN DURHAM,OZIEL Cerrato with a diagnosis of CHEST PAIN. Chief complaint is CHEST PAIN/SHOULDER PAIN. Patient arrived via stretcher from ER. Monitor applied. Initial assessment completed. Vital signs taken and recorded. DR. ARJUN DURHAM,OZIEL Cerrato notified of admission to the unit. Orders received. See assessment for past medical history, medications and allergies. Patient and/or family oriented to unit. [facility] visitation policy reviewed. Clothing/patient valuable form completed. ACOSTA CHERY
--- NOTE | 2019-07-31 17:46 | NUR ---
PATIENT DENIED ANY WOUNDS A&OX4.
[2019-07-31] MEDS ORDERED: LEVOXYL88 MCG PO (17:55)
[2019-07-31] MEDS ORDERED: CELECOXIB200 M1 PO (18:17)
[2019-07-31] MEDS ORDERED: GABAPENTIN800 MG PO (18:17)
[2019-07-31] MEDS ORDERED: FOSAMAX70 M1 PO (18:18)
[2019-07-31] MEDS ORDERED: AMBIEN10 M1 PO (18:19)
[2019-07-31] MEDS ORDERED: PROAIR HFA8.5 GM INH (18:19)
[2019-07-31] MEDS ORDERED: LIPITOR20 MG PO (18:19)
[2019-07-31] MEDS ORDERED: CYMBALTA20 M1 PO (18:20)
[2019-07-31] MEDS ORDERED: VITAMIN D PO (18:23)
--- NOTE | 2019-07-31 19:40 | NUR ---
PATIENT RESTING IN BED C/O BACK PAIN. TYLENOL OFFERED. PATIENT STATES "THAT WON'T CUT IT. I TAKE MEDICAL MARIJUANA THREE TIMES A DAY, I NEED SOMETHING GOOD AND STRONG". INFORMED ABOUT ORDERED STRESS TEST. VERBALIZED UNDERSTANDING. BED IN LOWEST POSITION, CALL LIGHT IN REACH
[2019-07-31 20:00] VITALS: BP 126/74
--- NOTE | 2019-07-31 20:05 | NUR ---
DR DÍAZ AWARE OF PATIENT REQUESTING STRONGER PAIN MEDICATION. ORDER TAKEN FOR 1MG DILAUDID IV Q4H PRN.
--- NOTE | 2019-07-31 20:59 | NUR ---
MEDICATED WITH PRN DILAUDID FOR C/O SHOULDER PAIN RATED 8/10 ON A 0/10 PAIN SCALE
[2019-08-01] VITALS: BP 135/81
--- NOTE | 2019-08-01 01:59 | NUR ---
24 HR chart check completed.
--- NOTE | 2019-08-01 04:40 | NUR ---
MEDICATED WITH PRN DILAUDID FOR C/O SHOULDER PAIN RATED 8/10 ON A 0/10 PAIN SCALE. WILL MONITOR
[2019-08-01 08:00] VITALS: BP 119/84
--- NOTE | 2019-08-01 09:19 | NUR ---
It Operations Specialist spoke to patient via phone. Patient states lives at home with her . There are 0 steps in the home. Physician: Dr. Yuri Medina Pharmacy: [facility] Home health services: none Patient's level of ADLs: INDEPENDENT Patient has working utilities: yes DME: none Follow-up physician's appointment after d/c: she prefers to make her own follow up appt after discharge Does patient want to access PORTAL?: no Discharge plan discussed with patient. She lives at home with her . She is independent in her ADLs and ambulation. Discussed home health care services and she denies any home needs. When medically stable she will be discharged to home. She states her , Jonatan, will provide transportation on discharge. ANTHONY ALVAREZ
--- NOTE | 2019-08-01 09:40 | NUR ---
PT MEDICATED WITH PRN DILAUDID FOR C/O LEFT SHOULDER PAIN. PT RATES PAIN 12/21. WILL MONITOR.
--- NOTE | 2019-08-01 10:15 | NUR ---
PT OFF FLOOR TO CARDIAC REHAB FOR STRESS TEST.
--- NOTE | 2019-08-01 11:02 | NUR ---
INFORMED CONSENT SIGNED FOR LEXISCAN STRESS TEST WITH DR. DÍAZ. RESTING EKG NSR WITH RARE PVC. HR 85, BP 122/74. PULSE OX 91% AND LUNGS CLEAR BILATERALLY. COMPLETED ONE MINUTE OF LEXISCAN PROTOCOL RECEIVING LEXISCAN 0.4MG PVER 10 SECONDS. NO ARRHYTHMIAS OR ST CHANGES NOTED. PT C/O CONTINOUS LEFT SHOULD PAIN THAT SHE HAD PRIOR TO START OF TEST AND NAUSEA. LAST RECOVERY HR 014, BP 124/80. WAITING NUCLEAR SCANNING IN STABLE CONDITION.
[2019-08-01 12:49] LABS: BASO % 0.3 % (0.0-1.0); EOS % 0.2 % (1.0-4.0); HEMATOCRIT 41.1 % (37.0-47.0); LYMPH # 1.1 10*3/uL (1.3-4.4); MEAN CELL VOLUME 82.4 fl (81.0-99.0); MEAN CORPUSCULAR HGB 27.7 pg (27.0-31.0); MEAN CORPUSCULAR HGB CONC 33.6 g/dl (33.0-37.0); MEAN PLATELET VOLUME 8.9 fl (9.6-12.3); MONO % 7.1 % (3.0-9.0); NEUT # 11.3 10*3/uL (2.3-7.9); NEUT % 83.2 % (47.0-73.0); PLATELET COUNT AUTOMATED 212 10*3/uL (130-400); RED BLOOD COUNT 4.99 10*6/uL (4.10-5.10); RED CELL DISTRI WIDTH 12.8 % (0-14.5); WHITE BLOOD COUNT 13.6 10*3/uL (4.8-10.8)
--- NOTE | 2019-08-01 13:40 | NUR ---
PT MEDICATED WITH PRN DILAUDID FOR C/O LEFT SHOULDER PAIN. PT RATES PAIN 12/21. WILL MONITOR.
[2019-08-01 16:00] VITALS: BP 121/64
[2019-08-01 20:00] VITALS: BP 115/80; BP 128/81
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
--- NOTE | 2019-08-01 22:41 | NUR ---
DR FRIAS MADE AWARE OF PATIENT'S CONFUSION. DR FRIAS STATES TO DC DILAUDID, ORDER ABG'S, AND ORDER BIPAP 03/18.
[2019-08-01 23:09] LABS: ABG BASE EXCESS -6.9 mmol/L (-2.0-2.0); ARTERIAL BLOOD GAS PH 7.309 (7.35-7.45)
--- NOTE | 2019-08-01 23:36 | NUR ---
PATIENT NOT MAKING MEANINGFUL SENTENCES. PATIENT STATES "I DON'T KNOW WHAT SUSANNAH IS MAKING UP." PATIENT STATES "THESE BED'S WERE NOT MADE WHEN I GOT HERE TODAY". PATIENT WAS ADMITTED YESTERDAY, AND REORIENTED TO PLACE AND TIME
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
[2019-08-02] VITALS: BP 115/80
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
--- NOTE | 2019-08-02 01:44 | NUR ---
PATIENT REMAINING AT 89% ON BIPAP. RESPIRATORY MADE AWARE
--- NOTE | 2019-08-02 01:49 | NUR ---
SpO2 ON / BIPAP IS 89%. STARTED 2L O2 BLEED IN. SpO2 IS NOW 95%
--- NOTE | 2019-08-02 02:32 | NUR ---
PATIENT RESTING IN BED WITH BIPAP INTACT. RESPS EASY AND REGULAR. BED ALARM ON, BED IN LOW POSITION, CALL LIGHT IN REACH
[2019-08-02 06:05] LABS: BASO % 0.4 % (0.0-1.0); EOS # 0.1 10*3/uL (0.0-0.4); EOS % 0.7 % (1.0-4.0); HEMATOCRIT 36.4 % (37.0-47.0); LYMPH # 1.2 10*3/uL (1.3-4.4); LYMPH % 11.4 % (27.0-41.0); MEAN CELL VOLUME 83.9 fl (81.0-99.0); MEAN CORPUSCULAR HGB 27.2 pg (27.0-31.0); MEAN CORPUSCULAR HGB CONC 32.4 g/dl (33.0-37.0); MEAN PLATELET VOLUME 9.2 fl (9.6-12.3); MONO # 0.9 10*3/uL (0.1-1.0); MONO % 8.4 % (3.0-9.0); NEUT # 8.4 10*3/uL (2.3-7.9); PLATELET COUNT AUTOMATED 198 10*3/uL (130-400); RED BLOOD COUNT 4.34 10*6/uL (4.10-5.10); RED CELL DISTRI WIDTH 12.7 % (0-14.5); WHITE BLOOD COUNT 10.8 10*3/uL (4.8-10.8)
[2019-08-02 08:00] VITALS: BP 128/68
--- NOTE | 2019-08-02 08:30 | NUR ---
Wire Winding Machine Tender spoke to patient via phone. No new needs or request at this time. She denies any home needs. When medically stable she will be discharged to home.
--- NOTE | 2019-08-02 09:24 | NUR ---
DR. DÍAZ IN TO ADMINISTER LIDOCAINE/KENOLOG INTRA-ARTICULAR INJECTION TO LEFT SHOULDER. PATIENT TOLERATED WELL.
--- NOTE | 2019-08-02 09:52 | NUR ---
Discharge instructions reviewed with patient. Patient receptive and verbalizes understanding. Follow-up care arranged. Written instructions given to patient. SHE IS WAITING FOR A RIDE HOME WITH HER . OLIVIER MURRAY
--- NOTE | 2019-08-02 10:13 | NUR ---
PATIENT DISCHARGED TO ED FRONT LOBBY, FOR TRANSPORT HOME BY PRIVATE VEHICLE WITH HER .
== END 2019-08-02 10:18 | disposition home or self-care (01) | DRG 554 ==
LOC: ED 13:42 → 4E 16:15 → EDHOLD 16:15 → 4E 17:02
PROVIDERS: Emergency Medicine; Internal Medicine; ADMIT Internal Medicine
PROC: 4A02XM4 Measurement of Cardiac Total Activity, External Approach (ICD-10-PCS; principal; 2019-08-01)
PROC: 3E073KZ Introduction of Other Diagnostic Substance into Coronary Artery, Percutaneous Approach (ICD-10-PCS; principal; 2019-08-01)
PROC: 5A09357 Assistance with Respiratory Ventilation, Less than 24 Consecutive Hours, Continuous Positive Airway Pressure (ICD-10-PCS; 2019-08-02)
DX: M19.012 Primary osteoarthritis, left shoulder (principal); J98.11 Atelectasis; F33.1 Major depressive disorder, recurrent, moderate; J43.2 Centrilobular emphysema; R07.89 Other chest pain; M81.0 Age-related osteoporosis without current pathological fracture; N18.3 Chronic kidney disease, stage 3 (moderate); I12.9 Hypertensive chronic kidney disease with stage 1 through stage 4 chronic kidney disease, or unspecified chronic kidney disease; E03.9 Hypothyroidism, unspecified; K59.09 Other constipation; F41.9 Anxiety disorder, unspecified; I70.0 Atherosclerosis of aorta; G89.29 Other chronic pain; M54.9 Dorsalgia, unspecified; D72.829 Elevated white blood cell count, unspecified; M17.0 Bilateral primary osteoarthritis of knee; I25.10 Atherosclerotic heart disease of native coronary artery without angina pectoris; E78.2 Mixed hyperlipidemia; T40.2X5A Adverse effect of other opioids, initial encounter; Y92.89 Other specified places as the place of occurrence of the external cause; Z88.8 Allergy status to other drugs, medicaments and biological substances; Z87.01 Personal history of pneumonia (recurrent); Z87.442 Personal history of urinary calculi; Z87.440 Personal history of urinary (tract) infections; Z90.49 Acquired absence of other specified parts of digestive tract; Z95.5 Presence of coronary angioplasty implant and graft; Z98.891 History of uterine scar from previous surgery; Z98.51 Tubal ligation status; Z82.49 Family history of ischemic heart disease and other diseases of the circulatory system; Z80.3 Family history of malignant neoplasm of breast; Z80.8 Family history of malignant neoplasm of other organs or systems; Z80.0 Family history of malignant neoplasm of digestive organs; Z80.1 Family history of malignant neoplasm of trachea, bronchus and lung; Z83.3 Family history of diabetes mellitus; Z86.73 Personal history of transient ischemic attack (TIA), and cerebral infarction without residual deficits

== ENCOUNTER → 2019-10-24 | Outpatient (CLI) | payer MEDICARE, OTHER ==
[~2019-10-24] MED LIST changes: +AMBIEN10 M1 PO; +CELECOXIB200 M1 PO; +CYMBALTA20 M1 PO; +FOSAMAX70 M1 PO; +LEVOXYL88 MCG PO; +LIPITOR20 MG PO; +VITAMIN D PO
[2019-10-24 10:40] LABS: HEMATOCRIT 39.8 % (37.0-47.0); MEAN CORPUSCULAR HGB 28.4 pg (27.0-31.0); MEAN CORPUSCULAR HGB CONC 33.4 g/dl (33.0-37.0); MEAN PLATELET VOLUME 8.9 fl (9.6-12.3); RED BLOOD COUNT 4.68 10*6/uL (4.10-5.10); RED CELL DISTRI WIDTH 16.3 % (0-14.5); WHITE BLOOD COUNT 5.9 10*3/uL (4.8-10.8)
[2019-10-24 10:59] LABS: ALBUMIN 3.4 gm/dl (3.1-4.5); CREATININE 1.37 mg/dL (0.55-1.02); POTASSIUM 3.5 mmol/L (3.5-5.1); TOTAL PROTEIN 6.9 gm/dL (6.4-8.2)
[2019-10-24 11:05] LABS: FREE T4 1.68 ng/dl (0.76-1.46); THYROID STIM HORMONE (HS) 1.33 uIU/ml (0.358-4.75)
[2019-10-24 11:06] LABS: VITAMIN D, 25-HYDROXY 69.8 ng/mL (30-100)
== END | disposition home or self-care (01) ==
LOC: NM 09:55
PROVIDERS: Family Medicine
DX: R07.2 Precordial pain (principal); E03.9 Hypothyroidism, unspecified; R53.2 Functional quadriplegia; K21.9 Gastro-esophageal reflux disease without esophagitis

== ENCOUNTER → 2020-02-06 | Outpatient (CLI) | payer MEDICARE, OTHER | END | disposition home or self-care (01) | LOC: LAB 12:02 | PROVIDERS: ATTEND Orthopaedic Surgery | DX: N39.0 Urinary tract infection, site not specified (principal) ==

== ENCOUNTER → 2020-05-11 | Outpatient (CLI) | payer MEDICARE, OTHER ==
[2020-05-11 12:08] LABS: HEMATOCRIT 40.1 % (37.0-47.0); MEAN CELL VOLUME 83.2 fl (81.0-99.0); MEAN CORPUSCULAR HGB CONC 32.4 g/dl (33.0-37.0); MEAN PLATELET VOLUME 9.2 fl (9.6-12.3); RED BLOOD COUNT 4.82 10*6/uL (4.10-5.10); RED CELL DISTRI WIDTH 13.3 % (0-14.5); WHITE BLOOD COUNT 5.7 10*3/uL (4.8-10.8)
[2020-05-11 12:32] LABS: ALBUMIN 3.2 gm/dl (3.1-4.5); ALKALINE PHOSPHATASE 78 U/L (45-117); BUN 13 mg/dl (7-24); CHLORIDE 106 mmol/L (98-107); CHOLESTEROL 188 mg/dL (<200); CREATININE 1.08 mg/dL (0.55-1.02); POTASSIUM 3.4 mmol/L (3.5-5.1); SGOT/AST 9 IU/L (3-35); SGPT/ALT 12 U/L (12-78); SODIUM 139 mmol/L (136-145); TOTAL PROTEIN 6.5 gm/dL (6.4-8.2); TRIGLYCERIDES 229 mg/dl (<150); VLDL CHOLESTEROL 46 mg/dL (6-40)
[2020-05-11 12:37] LABS: FREE T4 1.37 ng/dl (0.76-1.46); HDL CHOLESTEROL 53 mg/dl (40-60); LDL CHOLESTEROL 89 mg/dL (9-159)
== END | disposition home or self-care (01) ==
LOC: LAB 11:21
PROVIDERS: ATTEND Family Medicine
DX: E55.9 Vitamin D deficiency, unspecified (principal); R53.83 Other fatigue; E78.00 Pure hypercholesterolemia, unspecified; Z79.899 Other long term (current) drug therapy

== ENCOUNTER → 2020-12-24 | Outpatient (CLI) | payer MEDICARE, OTHER ==
[2020-12-24 14:02] LABS: HEMATOCRIT 39.6 % (37.0-47.0); MEAN CORPUSCULAR HGB 27.5 pg (27.0-31.0); MEAN CORPUSCULAR HGB CONC 32.3 g/dl (33.0-37.0); MEAN PLATELET VOLUME 9.3 fl (9.6-12.3); RED BLOOD COUNT 4.66 10*6/uL (4.10-5.10); RED CELL DISTRI WIDTH 13.7 % (0-14.5); WHITE BLOOD COUNT 5.7 10*3/uL (4.8-10.8)
[2020-12-24 14:21] LABS: ALBUMIN 3.3 gm/dl (3.1-4.5); CREATININE 1.28 mg/dL (0.55-1.02); POTASSIUM 4.4 mmol/L (3.5-5.1)
[2020-12-24 14:28] LABS: FREE T4 1.35 ng/dl (0.76-1.46); THYROID STIM HORMONE (HS) 0.091 uIU/ml (0.358-4.75); TOTAL PROTEIN 6.7 gm/dL (6.4-8.2)
== END | disposition home or self-care (01) ==
LOC: LAB 13:13
PROVIDERS: ATTEND Family Medicine
DX: E55.9 Vitamin D deficiency, unspecified (principal); E78.00 Pure hypercholesterolemia, unspecified; E03.9 Hypothyroidism, unspecified; Z79.899 Other long term (current) drug therapy

== ENCOUNTER → 2021-07-25 | Outpatient (CLI) | payer MEDICARE, OTHER ==
[2021-07-25 13:22] LABS: HEMATOCRIT 38.8 % (37.0-47.0); MEAN CELL VOLUME 88.4 fl (81.0-99.0); MEAN CORPUSCULAR HGB 29.8 pg (27.0-31.0); MEAN CORPUSCULAR HGB CONC 33.8 g/dl (33.0-37.0); MEAN PLATELET VOLUME 8.7 fl (9.6-12.3); RED BLOOD COUNT 4.39 10*6/uL (4.10-5.10); RED CELL DISTRI WIDTH 13.7 % (0-14.5); WHITE BLOOD COUNT 5.7 10*3/uL (4.8-10.8)
[2021-07-25 13:39] LABS: ALKALINE PHOSPHATASE 101 U/L (45-117); BUN 12 mg/dl (7-24); CHLORIDE 107 mmol/L (98-107); CHOLESTEROL 120 mg/dL (<200); CPK 28 U/L (26-192); CREATININE 1.05 mg/dL (0.55-1.02); LDL CHOLESTEROL 53 mg/dL (9-159); POTASSIUM 3.6 mmol/L (3.5-5.1); SGOT/AST 9 IU/L (3-35); SGPT/ALT 12 U/L (12-78); SODIUM 138 mmol/L (136-145); TOTAL PROTEIN 6.5 gm/dL (6.4-8.2); TRIGLYCERIDES 157 mg/dl (<150)
[2021-07-25 13:44] LABS: THYROID STIM HORMONE (HS) 0.566 uIU/ml (0.358-4.75); VITAMIN D, 25-HYDROXY 53.8 ng/mL (30-100)
== END | disposition home or self-care (01) ==
LOC: LAB 12:51 → RAD 13:30
PROVIDERS: Family Medicine; ATTEND Internal Medicine Endocrinology, Diabetes & Metabolism
DX: Z13.820 Encounter for screening for osteoporosis (principal); I10 Essential (primary) hypertension; E03.9 Hypothyroidism, unspecified; M81.0 Age-related osteoporosis without current pathological fracture; E55.9 Vitamin D deficiency, unspecified; E78.00 Pure hypercholesterolemia, unspecified

== ENCOUNTER → 2021-11-06 | Outpatient (CLI) | payer MEDICARE, OTHER ==
[2021-11-06 13:25] LABS: HEMATOCRIT 42.4 % (37.0-47.0); MEAN CELL VOLUME 87.2 fl (81.0-99.0); MEAN CORPUSCULAR HGB 27.2 pg (27.0-31.0); MEAN CORPUSCULAR HGB CONC 31.1 g/dl (33.0-37.0); RED BLOOD COUNT 4.86 10*6/uL (4.10-5.10); RED CELL DISTRI WIDTH 14.3 % (0-14.5); WHITE BLOOD COUNT 8.4 10*3/uL (4.8-10.8)
[2021-11-06 13:40] LABS: CREATININE 1.58 mg/dL (0.55-1.02); POTASSIUM 5.5 mmol/L (3.5-5.1); TOTAL PROTEIN 6.6 gm/dL (6.4-8.2)
[2021-11-06 14:09] LABS: VITAMIN D, 25-HYDROXY 53.5 ng/mL (30-100)
== END | disposition home or self-care (01) ==
LOC: LAB 13:12
PROVIDERS: ATTEND Family Medicine
DX: E55.9 Vitamin D deficiency, unspecified (principal); D64.9 Anemia, unspecified; R53.83 Other fatigue

== ENCOUNTER → 2021-11-25 | Outpatient (CLI) | payer MEDICARE, OTHER ==
[2021-11-25 14:13] LABS: HEMATOCRIT 34.3 % (37.0-47.0); MEAN CELL VOLUME 85.8 fl (81.0-99.0); MEAN CORPUSCULAR HGB CONC 32.7 g/dl (33.0-37.0); MEAN PLATELET VOLUME 9.4 fl (9.6-12.3); RED CELL DISTRI WIDTH 15.1 % (0-14.5); WHITE BLOOD COUNT 6.9 10*3/uL (4.8-10.8)
[2021-11-25 14:37] LABS: ALKALINE PHOSPHATASE 82 U/L (45-117); BUN 11 mg/dl (7-24); CHLORIDE 107 mmol/L (98-107); CREATININE 1.07 mg/dL (0.55-1.02); POTASSIUM 3.2 mmol/L (3.5-5.1); SGOT/AST 16 IU/L (3-35); SGPT/ALT 11 U/L (12-78); SODIUM 140 mmol/L (136-145); TOTAL PROTEIN 5.4 gm/dL (6.4-8.2)
== END | disposition home or self-care (01) ==
LOC: LAB 13:36
PROVIDERS: ATTEND Family Medicine
DX: E87.6 Hypokalemia (principal)

== ENCOUNTER → 2021-12-25 | Outpatient (CLI) | payer MEDICARE, OTHER | END | disposition home or self-care (01) | LOC: LAB 14:39 | PROVIDERS: ATTEND Student in an Organized Health Care Education/Training Program | DX: Z01.812 Encounter for preprocedural laboratory examination (principal); Z86.14 Personal history of Methicillin resistant Staphylococcus aureus infection ==

== ENCOUNTER → 2022-01-16 | Outpatient (CLI) | payer MEDICARE, OTHER | END | disposition home or self-care (01) | LOC: LAB 11:32 | PROVIDERS: ATTEND Student in an Organized Health Care Education/Training Program | DX: Z86.14 Personal history of Methicillin resistant Staphylococcus aureus infection (principal) ==

== ENCOUNTER → 2022-01-31 | Outpatient (CLI) | payer MEDICARE, OTHER ==
[2022-01-31 08:36] LABS: CREATININE 1.12 mg/dL (0.55-1.02)
== END | disposition home or self-care (01) ==
LOC: LAB 07:42
PROVIDERS: ATTEND Family Medicine
DX: E83.51 Hypocalcemia (principal)

== ENCOUNTER → 2022-02-19 | Outpatient (CLI) | payer MEDICARE, OTHER ==
[2022-02-19 10:48] LABS: ALKALINE PHOSPHATASE 101 U/L (45-117); BUN 8 mg/dl (7-24); CHLORIDE 106 mmol/L (98-107); CREATININE 1.04 mg/dL (0.55-1.02); POTASSIUM 3.2 mmol/L (3.5-5.1); SGOT/AST 11 IU/L (3-35); SGPT/ALT 10 U/L (12-78); SODIUM 137 mmol/L (136-145); TOTAL PROTEIN 5.5 gm/dL (6.4-8.2)
== END | disposition home or self-care (01) ==
LOC: LAB 09:54
PROVIDERS: ATTEND Family Medicine
DX: E87.6 Hypokalemia (principal)

== ENCOUNTER → 2022-03-31 | Outpatient (CLI) | payer MEDICARE, OTHER ==
[2022-03-31 14:31] LABS: CREATININE 1.41 mg/dL (0.55-1.02); POTASSIUM 3.5 mmol/L (3.4-5.1); TOTAL PROTEIN 5.6 gm/dL (6.0-8.0)
== END | disposition home or self-care (01) ==
LOC: CT 13:00 → LAB 13:04
PROVIDERS: ATTEND Family Medicine
DX: E83.42 Hypomagnesemia (principal); R63.4 Abnormal weight loss; E87.6 Hypokalemia; R11.0 Nausea

== ENCOUNTER → 2022-06-04 | Outpatient (CLI) | payer MEDICARE, OTHER ==
[2022-06-04 12:53] LABS: HEMATOCRIT 37.3 % (37.0-47.0); MEAN CELL VOLUME 90.1 fl (81.0-99.0); MEAN CORPUSCULAR HGB 31.2 pg (27.0-31.0); MEAN CORPUSCULAR HGB CONC 34.6 g/dl (33.0-37.0); MEAN PLATELET VOLUME 8.7 fl (9.6-12.3); RED BLOOD COUNT 4.14 10*6/uL (4.10-5.10); RED CELL DISTRI WIDTH 14.5 % (0-14.5); WHITE BLOOD COUNT 7.3 10*3/uL (4.8-10.8)
[2022-06-04 13:26] LABS: POTASSIUM 2.5 mmol/L (3.4-5.1); TOTAL PROTEIN 4.9 gm/dL (6.0-8.0)
[2022-06-04 14:09] LABS: VITAMIN D, 25-HYDROXY 68.7 ng/mL (30-100)
== END | disposition home or self-care (01) ==
LOC: LAB 12:32
PROVIDERS: ATTEND Family Medicine
DX: I10 Essential (primary) hypertension (principal); G47.00 Insomnia, unspecified; E03.9 Hypothyroidism, unspecified; E55.9 Vitamin D deficiency, unspecified

== ENCOUNTER → 2022-06-06 | Outpatient (CLI) | payer MEDICARE, OTHER ==
[2022-06-06 12:04] LABS: POTASSIUM 2.7 mmol/L (3.4-5.1); TOTAL PROTEIN 4.7 gm/dL (6.0-8.0)
== END | disposition home or self-care (01) ==
LOC: LAB 11:05
PROVIDERS: ATTEND Family Medicine
DX: E87.6 Hypokalemia (principal)

== ENCOUNTER 2022-06-10 13:04 | Emergency (ER) | payer MEDICARE, OTHER ==
[~2022-06-10] VITALS: Ht 152.4 cm; Wt 52.6 kg
[2022-06-10 15:00] LABS: BASO # 0.1 10*3/uL (0.0-0.1); BASO % 1.5 % (0.0-1.0); EOS % 0.4 % (1.0-4.0); HEMATOCRIT 38.8 % (37.0-47.0); LYMPH # 1.8 10*3/uL (1.3-4.4); LYMPH % 24.7 % (27.0-41.0); MEAN CELL VOLUME 94.6 fl (81.0-99.0); MEAN CORPUSCULAR HGB CONC 33.8 g/dl (33.0-37.0); MEAN PLATELET VOLUME 8.6 fl (9.6-12.3); MONO # 0.3 10*3/uL (0.1-1.0); MONO % 3.5 % (3.0-9.0); NEUT # 5.1 10*3/uL (2.3-7.9); NEUT % 69.1 % (47.0-73.0); PLATELET COUNT AUTOMATED 403 10*3/uL (130-400); RED CELL DISTRI WIDTH 14.6 % (0-14.5); WHITE BLOOD COUNT 7.3 10*3/uL (4.8-10.8)
[2022-06-10 15:18] LABS: POTASSIUM 4.4 mmol/L (3.4-5.1); TOTAL PROTEIN 5.4 gm/dL (6.0-8.0)
[2022-06-10] MEDS ORDERED: COREG6.25 MG PO (15:29)
[2022-06-10 15:31] LABS: ACT PARTIAL THROMBO TIME 30.8 SECONDS (20.0-32.1); INTERNATIONAL NORM RATIO 1.2 (2.0-3.5)
[2022-06-10] MEDS ORDERED: TRAZODONE50 MG PO (15:33)
[2022-06-10] MEDS ORDERED: PHENERGAN25 M3 PO (17:33)
== END 2022-06-10 17:35 | disposition home or self-care (01) ==
LOC: ED 13:04
PROVIDERS: Emergency Medicine
DX: E87.8 Other disorders of electrolyte and fluid balance, not elsewhere classified (principal); J44.9 Chronic obstructive pulmonary disease, unspecified; D64.9 Anemia, unspecified; I10 Essential (primary) hypertension; I25.10 Atherosclerotic heart disease of native coronary artery without angina pectoris; Z88.8 Allergy status to other drugs, medicaments and biological substances; Z98.890 Other specified postprocedural states; Z90.49 Acquired absence of other specified parts of digestive tract; Z90.89 Acquired absence of other organs; Z98.51 Tubal ligation status; Z87.891 Personal history of nicotine dependence

== ENCOUNTER → 2022-06-12 | Outpatient (CLI) | payer MEDICARE, OTHER ==
[~2022-06-12] MED LIST changes: +COREG6.25 MG PO; +PHENERGAN25 M3 PO; +TRAZODONE50 MG PO
[2022-06-12 14:56] LABS: HEMATOCRIT 32.9 % (37.0-47.0); MEAN CELL VOLUME 95.6 fl (81.0-99.0); MEAN CORPUSCULAR HGB 32.3 pg (27.0-31.0); MEAN CORPUSCULAR HGB CONC 33.7 g/dl (33.0-37.0); MEAN PLATELET VOLUME 8.7 fl (9.6-12.3); RED BLOOD COUNT 3.44 10*6/uL (4.10-5.10); RED CELL DISTRI WIDTH 14.5 % (0-14.5); WHITE BLOOD COUNT 8.8 10*3/uL (4.8-10.8)
[2022-06-12 15:11] LABS: POTASSIUM 4.5 mmol/L (3.4-5.1); TOTAL PROTEIN 4.3 gm/dL (6.0-8.0)
== END | disposition home or self-care (01) ==
LOC: LAB 14:40
PROVIDERS: ATTEND Family Medicine
DX: E87.6 Hypokalemia (principal)